=== PATIENT | male | born 1990 | race Hispanic/Latino ===

== ENCOUNTER 2016-09-26 03:48 | Emergency (ER) | payer SELFPAY ==
--- OUTSIDE RECORDS SUMMARY | 2016-09-26 04:20 | XMS REPORT | Continuity of Care Document ---
:1990 Author Organization [facility] [place] [address] Care Team Providers Name Role Phone Provider, None Per Patient Primary Care Provider Unavailable Source Comments This disclosure is being made pursuant to the [employer] program and may contain all information available regarding this patient.[facility] Active Allergies and Adverse Reactions No Known Allergies Current Medications Be aware that medications may not be up to date as of this document. Alwaysverify current medications with the patient. Prescription Sig. Disp. Refills Start Date End Date Status escitalopram (LEXAPRO) Take 1 tablet by 30 tablet 2 06/16/2015 Active 20 MG tablet mouth daily. traZODone (DESYREL) 50 Take 1 tablet by 30 tablet 2 06/16/2015 Active MG tablet mouth nightly. Active Problems Problem Noted Date Recurrent seasonal major depression, severe (HCC) 06/16/2015 Depression 06/09/2015 Anxiety 06/09/2015 Suicidal intent 06/09/2015 Social History Tobacco Use Types Packs/Day Years Used Date Current Every Day Smoker Cigarettes 1 Alcohol Use Drinks/Week oz/Week Comments Yes whiskey, daily for past 2 weeks Last Filed Vital Signs Vital Sign Reading Time Taken Blood Pressure 123/81 06/16/2015 4:31 PM [employer] Pulse 91 06/16/2015 4:31 PM [employer] Temperature 37.5 C (99.5 F) 06/16/2015 4:30 PM [employer] Respiratory Rate 18 06/16/2015 4:30 PM [employer]ERK [employer]UDIT[employer] Height 1.725 m (5' 7.91") 06/09/2015 2:39 AM NIGHT CLERK AUDIT[employer] Weight 72.031 kg (158 lb 12.8 oz) 06/14/2015 7:00 AM [employer] Body Mass Index 24.21 06/14/2015 7:00 AM N[employer] CLERK [employer]IT[employer] Oxygen Saturation 100% 06/16/2015 4:30 PM NIGHT CLERK [employer]IT[employer] Plan of Care Health Maintenance Due Date Last Done Comments Pneumococcal Medium Risk 19-64 yo 09/06/2010 (1 of 1 - PPSV23) Tetanus/Pertussis (1 - Tdap) 09/06/2010 Influenza Immunization (#1) 2015 HPV Vaccine ([id number]) Aged Out No longer eligible based on patient's age to complete this topic Results from Last 3 Months Not on file
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
[2016-09-26 04:34] LABS: Hematocrit 41.7 % (42.0-52.0); Hemoglobin 13.9 gm/dL (13.5-18.0); Mean Cell Volume 88.2 fl (78-100); Mean Corpuscular Hemoglobin 29.4 pg (27-31); Mean Corpuscular Hgb Conc 33.3 g/dl (32-36); Mean Platelet Volume 10.2 fl (6.0-9.5); Neutrophil # 2.6 K/mm3 (1.3-6.0); Platelet Count 277 K/mm3 (150-450); Red Blood Count 4.73 M/mm3 (4.7-6.0); Red Cell Distribution Width 12.5 % (11.5-14.0); White Blood Count 5.2 K/mm3 (4.0-10.5)
[2016-09-26 04:54] LABS: ALT 36 U/L (19-67); AST 22 U/L (0-48); Albumin * 3.5 gm/dl (3.4-5.0); Alkaline Phosphatase * 109 U/L (50-170); Anion Gap 12.8 mmol/L (6.8-13.8); BUN/Creatinine Ratio 15.7 (9.0-21.6); Bilirubin, Total 0.4 mg/dL (0.0-1.1); Blood Urea Nitrogen 13 mg/dL (6-23); Ca. Corrected For Albumin 8.9 mg/dL (8.4-10.2); Calcium * 8.8 mg/dL (7.9-10.9); Carbon Dioxide 27.9 mmol/L (24-32.6); Chloride 106 mmol/L (97-106); Glucose * 134 mg/dL (70-110); Potassium 3.7 mmol/L (3.4-4.6); Sodium 143 mmol/L (132-142); Total Protein 7.3 gm/dL (6.2-8.2); Troponin I Less than 0.017 ng/ml (0.00-0.10)
[2016-09-26] MEDS ORDERED: LIDOCAINE HCL 20 ML UDC PO ONE (05:09)
[2016-09-26] MEDS ORDERED: MAG HYDROX/ALUMINUM HYD/SIMETH 30 ML UDC PO ONE (05:09)
[2016-09-26] MEDS ORDERED: SUCRALFATE 1 G/10 ML UDC PO ONE (05:09)
[2016-09-26] MEDS ORDERED: KETOROLAC TROMETHAMINE 60 MG/2 ML VIAL IM ONE ×2 (05:47→05:50)
[2016-09-26 06:18] VITALS: BP 113/74
== END 2016-09-26 06:02 | disposition home or self-care (01) ==
LOC: ER 03:48
DX: K29.01 Acute gastritis with bleeding (principal); Z72.0 Tobacco use